=== PATIENT | female | born 1970 | race Caucasian/White ===

== ENCOUNTER 2024-10-25 03:49 | Inpatient (IN) | payer MEDICAID ==
[~2024-10-25] VITALS: Ht 170.2 cm; Wt 133.0 kg
[2024-10-25] VITALS (7 sets, daily range): BP systolic 90–164; BP diastolic 50–114; PULSE 71–95; RESP 16–20; TEMP 97.6–99; O2SAT 90–100
--- NOTE | 2024-10-25 04:30 | ELECTROCARDIOGRAPH REPORT ---
[facility] Test Date: 2024-10-25 Test Time: 04:28:01 Pat Name: STACY TURNER Department: [facility]- Patient ID: [facility]-[id number] Room: Gender: F Mobile Crane Operator: : 1970 Requested By: KITTY MALDONADO Order Number: [id number] Reading MD: Measurements Intervals [place] Rate: 100 P: 42 RI: 147 QRS: 43 QRSD: 126 T: 27 QT: 327 QTc: 422 Interpretive Statements Sinus tachycardia Nonspecific intraventricular conduction delay Probable inferior infarct, old Lateral leads are also involved Please click the below link to view image of tracing.
--- NOTE | 2024-10-25 04:34 | Physician Documentation ---
History of Present Illness ~ Chief Complaint: Leg Pain Stated Complaint: KIDNEY PAIN Time Seen by MD: 04:33 Mode of Arrival: EMS HPI Patient presents to the emergency room for evaluation transferred from [facility] for infection of leg in need for nephrology consult and Infectious Disease consult. Patient has history of bilateral lymphadenopathy and she goes to wound care for chronic wounds on her legs. Legs have significantly worsened recently prompting patient come into their emergency room. Patient found to be septic with reassuring blood pressures. Initially Rocephin and vancomycin was ordered however given patient's history of multi-drug resistance hospitalist added meropenem and Zyvox. Patient received IV fluids at sending facility with slight increase of patient's creatinine however given patient's acute kidney injury confirmed with normal renal function one month ago along with likely need for complicated antibiotic regimen that could be nephrotoxic they felt that transfer was necessary for nephrology consultation as well as Infectious Disease. She has received 2 L of IV fluids. Tetanus witin 5 years: No (Didnt ask) Medication Reconciliation Allergies: Coded Allergies: cephalexin (Unverified Allergy, Unknown, 10/25/24) morphine (Unverified Allergy, Unknown, 10/25/24) Review of Systems ROS All review of systems negative except as per HPI Physical Exam Vital Signs: Temperature: 99.2, Source: Oral, Heart Rate: 99, Respiratory Rate: 16, BP: 135/73, Pulse Oximetry: 91, Weight: 133.000 Oxygen Flow Rate: 0 Physical Exam General: Patient is awake, alert, oriented x4 in no acute distress Head: Normocephalic and atraumatic. Eyes: Conjunctival normal. EOMI. PERRL. ENT: Mucous membranes moist. Neck: Supple, trachea is midline. Chest: Clear to auscultation bilaterally without rales, rhonchi, or wheezes. There is no accessory muscle use or retractions. Cardiac: RRR without murmurs, gallops, or rubs. Extremities: Still and in his noted to bilateral legs left greater than right. Dorsalis pedis pulses intact bilaterally Progress Results/Orders Results/Orders Orders - LARRY NEAL MD Culture Blood (10/25/24 04:04) Urinalysis, Cult If Indicated (10/25/24 04:04) Chest,Single View (10/25/24 04:04) Monitor (10/25/24 04:04) Oxygen (10/25/24 04:04) Saline Lock (10/25/24 04:04) Procalcitonin (10/25/24 04:04) Hs Troponin I W Calculations (10/25/24 04:04) Cult Mrsa Screen (10/25/24 04:04) Lacticsepsis (10/25/24 04:04) Straight Cath For Urine Sample (10/25/24 04:04) Page Hospitalist (10/25/24 04:45) Fill Out Med Reconciliation (10/25/24 04:45) Completed Orders - LARRY NEAL MD Cbc/Diff (10/25/24 04:04) Chest,Single View (10/25/24 04:04) Electrocardiogram (10/25/24 04:04) BMP (10/25/24 04:04) Vital Signs 10/25/24 10/25/24 10/25/24 03:50 04:01 05:03 Temp 99.2 Pulse 99 101 Resp 14 16 16 B/P (MAP) 135/73 135/73 (93) Pulse Ox 91 100 O2 Flow Rate 0 0 Laboratory Tests Test 10/25/24 04:40 White Blood Count 15.4 H Red Blood Count 4.17 L Hemoglobin 11.8 L Hematocrit 34.7 L Mean Corpuscular Volume 83.3 Mean Corpuscular Hemoglobin 28.3 Mean Corpuscular Hemoglobin Concent 34.0 Red Cell Distribution Width 14.2 Platelet Count 459 H Mean Platelet Volume 8.3 Neutrophils (%) (Auto) 76.8 H Lymphocytes (%) (Auto) 12.2 L Monocytes (%) (Auto) 8.1 Eosinophils (%) (Auto) 2.0 Basophils (%) (Auto) 0.9 Neutrophils # (Auto) 11.8 H Lymphocytes # (Auto) 1.9 Monocytes # (Auto) 1.2 H Eosinophils # (Auto) 0.3 Basophils # (Auto) 0.1 CBC Comment Sodium Level 130 L Potassium Level 4.7 Chloride Level 99 Carbon Dioxide Level 19.1 L Anion Gap 12 Blood Urea Nitrogen 62 H Creatinine 2.92 H Estimated GFR/1.73 m2 17 BUN/Creatinine Ratio 21.2 H Glucose Level 105 H Calcium Level 8.6 Albumin 2.3 L Chemistry Comments EKG/XRAY/CT/US/VASC/MRI EKG : Additional Comment EKG interpreted by myself shows time of 0428, rate 100, sinus tachycardia, normal axis, no ST changes Medical Decision Making Findings Patient presents to the emergency room from [facility] for need for infectious disease consultation as well as nephrology consultation. Patient was septic and received both IV fluids in IV antibiotics at sending facility. We will admit for continued treatment and consultations Departure Admitted to Inpatient Unit: yes, to hospitalist Impression: Primary Impression: Cellulitis Additional Impressions: Sepsis Acute kidney injury Condition: Guarded Referrals: NO PRIMARY CARE PROVIDER (PCP) Signature Scribe Signature: No scribe Attestation: The note accurately reflects work and decisions made by me.Larry Neal MD 10/25/24 04:45 LARRY NEAL MD October 25, 2024 04:34
[2024-10-25 05:11] LABS: BASOPHILS # (AUTO) 0.1 X10'3 (0-0.2); BASOPHILS % (AUTO) 0.9 % (0-1); EOSINOPHILS # (AUTO) 0.3 X10'3 (0-0.9); HEMATOCRIT 34.7 % (35.0-45.0); HEMOGLOBIN 11.8 g/dl (12.0-16.0); LYMPHOCYTES # (AUTO) 1.9 X10'3 (1.1-4.8); LYMPHOCYTES % (AUTO) 12.2 % (21-51); MEAN CORPUSCULAR HEMOGLOBIN 28.3 PG (27.0-31.0); MEAN CORPUSCULAR VOLUME 83.3 FL (78-98); MEAN PLATELET VOLUME 8.3 FL (7.4-10.4); MONOCYTES # (AUTO) 1.2 X10'3 (0-0.9); MONOCYTES % (AUTO) 8.1 % (2-12); NEUTROPHILS # (AUTO) 11.8 X10'3 (1.8-7.7); NEUTROPHILS % (AUTO) 76.8 % (42-75); PLATELET COUNT 459 X10'3 (140-440); RED BLOOD COUNT 4.17 X10'6 (4.20-5.60); RED CELL DISTRIBUTION WIDTH 14.2 % (11.5-14.5); WHITE BLOOD COUNT 15.4 X10'3 (4.5-11.0)
--- NOTE | 2024-10-25 05:11 | RADIOLOGY REPORT ---
EXAM: XR Chest, 1 View CLINICAL INDICATION: suspected infection TECHNIQUE: Frontal view of the chest. COMPARISON: None FINDINGS: LUNGS AND PLEURAL SPACES: Unremarkable. No consolidation. No pneumothorax. HEART: Unremarkable. No cardiomegaly. MEDIASTINUM: Unremarkable. Normal mediastinal contour. BONES/JOINTS: Unremarkable. No acute fracture. OTHER FINDINGS: . IMPRESSION: No acute cardiopulmonary process.
[2024-10-25 05:22] LABS: ALBUMIN 2.3 G/DL (3.4-5.0); ANION GAP 12 (8-16); BLOOD UREA NITROGEN 62 MG/DL (7-18); BUN/CREATININE RATIO 21.2 (10.0-20.0); CALCIUM 8.6 MG/DL (8.5-10.1); CHLORIDE 99 MMOL/L (99-107); CREATININE 2.92 MG/DL (0.40-0.90); GLUCOSE 105 MG/DL (70-104); POTASSIUM 4.7 MMOL/L (3.5-5.1); SODIUM 130 MMOL/L (135-145); TOTAL CARBON DIOXIDE 19.1 MMOL/L (24-32); eCRCL 21 ML/MIN; eGFR 17 ML/MIN
[2024-10-25] MEDS ORDERED: potassium Cl 20 mEq SR tablet PO PRN ×2 (05:25)
[2024-10-25] MEDS ORDERED: magnesium sulf-water 4G/100mL 100 ML IV PRN (05:25)
[2024-10-25] MEDS ORDERED: magnesium hydroxide 30ml (MOM) UD suspension PO PRN (05:25)
[2024-10-25] MEDS ORDERED: mag hydrox/Alum hydrox/simeth 30ml oral suspension PO PRN (05:25)
[2024-10-25] MEDS ORDERED: ondansetron/PF 4mg/2ml inj IV PRN (05:25)
[2024-10-25] MEDS ORDERED: magnesium Cl slow-release 64mg tablet PO PRN (05:25)
[2024-10-25] MEDS ORDERED: magnesium sulf-water 2g/50mL 50 ML IV PRN (05:25)
[2024-10-25] MEDS ORDERED: acetaminophen 325mg tablet PO PRN (05:25)
[2024-10-25] MEDS ORDERED: potassium Cl 40MEQ/1/2NS 520ml 520 ML IV PRN (05:25)
[2024-10-25] MEDS: HYDROmorphone inj. 0.5 MG/0.5 ML DISP.SYRIN IV PRN (05:50)
[2024-10-25 06:16] LABS: MAGNESIUM 2.2 MG/DL (1.5-2.4); PHOSPHORUS 4.3 MG/DL (2.3-4.5)
--- NOTE | 2024-10-25 06:21 | HISTORY AND PHYSICAL-Residence ---
History & Physical Providers to CC Resident Creating Document: SHYAMSANTOSHIVORY DIXON ~ History of Present Illness Reason for Admit\Complaint: MIKE, bilateral lower extremity cellulitis, past h/o MRSA, MDR Pseudomo History of Present Illness 54-year-old female with a PMH of HTN, CKD stage 2, lymphedema, morbid obesity, meth use, nicotine dependence, venous stasis ulcer, history of MDR Pseudomonas and MRSA transferred from [facility] for bilateral lower extremity cellulitis and acute kidney injury with worsening renal function. Collected the history from the patient and also reviewed the documents of [facility]. Patient has bilateral lower extremity lymphedema with ulcers. For the past two weeks patient stated that redness, swelling and pain got worsened in both lower extremities. She also noticed lot of skin peeling and skin breakdown. Stated pain as 10/10 severity sharp nonradiating. She has had multiple infections in her leg with lymphedema and she was admitted in hospital in 2022 for this. She was treated with Keflex and Bactrim in July which did not improve leg infection. She follows with [facility] at [place]. She went to [place] in view of worsening pain and redness in both legs. On evaluation at [place] she found to have acute kidney injury with creatinine of 4.0, bicarb of 16. Urine was positive for nitrite and WBC. Her urine output was only 150 mL. Given patient has multidrug resistan infections in the past with acute kidney injury patient was transferred here for further management as they do not have nephrology services in place. At [facility] patient received meropenem and Zyvox for broader coverage. On my evaluation patient complains of 10/10 sharp pain in both lower extremities. Stated that this is worsening for the past two weeks. Denied fever, chills, rigors. Endorsed urinary discomfort. Denied abdominal symptoms, nausea, vomiting, chest pain, SOB. Allergies: Coded Allergies: cephalexin (Unverified Allergy, Unknown, 10/25/24) morphine (Unverified Allergy, Unknown, 10/25/24) Past Medical History Past Medical History HTN, CKD stage 2, lymphedema, meth use, nicotine dependence, venous stasis ulcer, history of MDR Pseudomonas and MRSA Past Surgical History Surgical History Comment Appendicectomy, left ankle surgery, laparoscopy for endometriosis Past Social History Social History Comment Patient lives alone, fairly independent, stated that she ambulates without assistance. Follows with [facility] Alcohol: Denied Smoking: Smokes half pack a day for the past 25 years Smokes marijuana for anxiety Denied other drug use ROS All Other Systems: Reviewed and Negative Exam Vitals: Vital Signs Date Time Temp Pulse Resp B/P (MAP) Pulse Ox O2 Delivery O2 Flow Rate FiO2 10/25/24 05:50 16 10/25/24 05:03 101 135/73 (93) 100 0 10/25/24 03:50 99.2 General: General: Morbid obese, Awake and Alert, in mild distress due to bilateral lower extremity pain HEENT: Conjunctiva pink, Sclera clear, dry mucous membranes Neck: Supple without masses and tenderness. Resp: Unlabored. Lungs clear to auscultation bilaterally. Heart: Regular Rate and rhythm, normal S1 and S2 without murmur, rub or gallop. Abdomen: Soft and non tender no organomegaly Extremities: Bilateral lower extremity 2+ chronic lymphedema with skin peeling on ulcers. Redness, warmth and tenderness noted in both extremities. Left more than right. No pus discharge noted. Skin: Bilateral lower extremity lymphedema with skin peeling and ulcers. DRY CANS BACK TENDER: Awake, alert, oriented x3. No motor deficits. No sensory deficits. Cranial nerves intact Diagnostic Data Last Recorded Lab Results: 10/25/24 0440 10/25/24 0440 Advance Care Planning Advanced Care plannin - 30 Minutes (Advanced care planning discussed at the bedside for approximately 15-20 minutes. All resuscitative measures including chest compressions, mechanical ventilation, defibrillation explained in detail. Patient acknowledged understanding all the resuscitative measures and opted for full code status.) Additional Plan 54-year-old female with a PMH of HTN, CKD stage 2, lymphedema, meth use, nicotine dependence, venous stasis ulcer, history of MDR Pseudomonas and MRSA transferred from [facility] for bilateral lower extremity cellulitis and acute kidney injury with worsening renal function. Patient transferred here because of past history of multi-drug resistant infections requiring broad-spectrum antibiotics along with acute kidney injury and worsening kidney functions. Patient transferred here as [facility] do not have nephrology services in place. Labs from [facility]: WBC 18, hemoglobin 13.3, platelets 618, neutrophils 80, ESR 47, sodium 130, potassium 5.1, bicarb 16, anion gap 14, BUN 69, creatinine 4.09, total bilirubin 4.27, ALT 47, AST 38, ALP 383, lactic acid 1.2, UA positive for protein, nitrite, leuko esterase, WBC, bacteria, hyaline casts. Assessment and plan: Recurrent Bilateral L/E lymphedema ulcers with cellulitis: Patient has chronic lymphedema in both lower extremities with ulcers For the past two weeks she had increased swelling, redness, tenderness and increased pain 10/10 severity She has a history of two hospitalizations in the past and one failed outpatient therapy for lower extremity infections History of MDR Pseudomonas and MRSA in the past Currently started on injection cefepime, injection Zyvox Currently WBC: 15.4, patient afebrile Started injection cefepime and Injection Zyvox for broad-spectrum coverage Avoided vancomycin in view of acute kidney injury Follow up blood cultures Consult ID in a.m. MIKE secondary to tubular stasis; metabolic acidosis As per [facility] records patient's creatinine was 4.0 on their evaluation Patient received 2 L of IV fluid bolus, current creatinine trended down 2.9, BUN 69 Bicarb 19, anion gap 12 We will start on IV fluids with two amps of sodium bicarb at 100 mL/hour Follow up with CMP and consult Nephrology if persistent renal functioning is noticed Follow up for UA lytes, UA protein, U a sediment, UA eosinophils Hypertension: Home meds metoprolol p.o. daily, continue after med rec Chronic lymphedema: Home meds p.o. Lasix 40 mg Currently on hold in view of MIKE Neuropathic pain: Gabapentin 800 mg p.o. t.i.d. Withheld in view of MIKE HLD: Atorvastatin 40 mg once daily, continue after med rec Morbid obesity: Not on home CPAP Code status: Full code DVT: Heparin 5000 subQ t.i.d. Date of Service: October 25, 2024 Billing Provider: STEVE PALACIOS MD, KOTESHWAREDDY, RES October 25, 2024 06:21
[2024-10-25] MEDS ORDERED: sodium bicarbonate (8.4%) inj. 100 MEQ in dextrose 5%-water 1,000 ML IV SCH (06:40)
[2024-10-25] MEDS: K and/or MAG REPLACEMENT MC SCH (08:00)
[2024-10-25] MEDS ORDERED: linezolid 600mg/300ml PREMIX 300 ML IV SCH (08:00)
[2024-10-25] MEDS ORDERED: CEFEPIME 2gm in D5W 50mL 50 ML IV SCH (08:00)
[2024-10-25 08:03] LABS: C-REACTIVE PROTEIN 12.25 MG/DL (0.0-0.5)
[2024-10-25] MEDS: HYDROcodone/acetaminophen 5mg/325mg tablet PO PRN (10:44)
[2024-10-25] MEDS: heparin, porcine 5000 units/ml vial SQ SCH (11:47)
[2024-10-25] MEDS: vancomycin/NS 1 GM ADD-VANTAGE 250 ML IV SCH (11:48)
[2024-10-25] MEDS: normal saline 1000ml 1,000 ML IV SCH (11:48)
[2024-10-25] MEDS: JUVEN Smoothie Arginine/Glut./Ca2+Bmb (Juven 19.3pkt) 240ml cup PO SCH (12:30)
[2024-10-25] MEDS: HYDROcodone/acetaminophen 10/325mg tab PO PRN (15:40)
--- NOTE | 2024-10-25 16:40 | RADIOLOGY REPORT ---
RENAL ULTRASOUND History: arleen Comparison: None Technique: Multiple real-time sonographic images of the kidney and bladder were obtained in conjuncti on with Doppler imaging. Findings: Echogenic bilateral kidneys. The right kidney measures 8.8 cm and demonstrates no evidence of hydronephrosis, perinephric fluid co llection, or shadowing stone. The left kidney measures 8.8 cm and demonstrates no evidence of hydronephrosis, perinephric fluid col lection, or shadowing stone. Urinary bladder: Nondistended, limiting evaluation. Impression: 1. Small and echogenic kidneys, which can be seen with medical renal disease.
[2024-10-25] MEDS ORDERED: GABA-530 PO (19:31)
[2024-10-25] MEDS ORDERED: LISI40TA13 PO (19:31)
[2024-10-25] MEDS ORDERED: METO-384 PO (19:31)
[2024-10-25] MEDS ORDERED: POTA-366 PO (19:31)
[2024-10-25] MEDS ORDERED: HYDR25TA4 PO (19:31)
[2024-10-25] MEDS ORDERED: HYDR-3686 PO (19:31)
[2024-10-25] MEDS ORDERED: BENZ200C53 PO (19:31)
[2024-10-25] MEDS ORDERED: FURO20TA4 PO (19:31)
[2024-10-25] MEDS ORDERED: NICO-630 TD (19:31)
[2024-10-25] MEDS ORDERED: ONDA-103 PO (19:31)
[2024-10-25] MEDS ORDERED: ASPI-103 PO (19:31)
[2024-10-25] MEDS ORDERED: ATOR40TA72 PO (19:31)
[2024-10-25] MEDS ORDERED: BUSP10TA3 PO (19:31)
[2024-10-25] MEDS ORDERED: vancomycin/NS 1 GM ADD-VANTAGE 250 ML IV SCH (20:00)
[2024-10-26] MEDS: nicotine 7mg patch - 24hr TD SCH (00:10)
[2024-10-26 05:00] VITALS: BP 92/49; PULSE 82; RESP 16; TEMP 97.9; O2SAT 100
[2024-10-26 06:56] LABS: BASOPHILS % (AUTO) 0.2 % (0-1); EOSINOPHILS # (AUTO) 0.3 X10'3 (0-0.9); EOSINOPHILS % (AUTO) 3.5 % (0-6); HEMATOCRIT 34.3 % (35.0-45.0); HEMOGLOBIN 11.5 g/dl (12.0-16.0); LYMPHOCYTES # (AUTO) 2.4 X10'3 (1.1-4.8); LYMPHOCYTES % (AUTO) 30.2 % (21-51); MEAN CORPUSCULAR HGB CONC 33.5 g/dL (33.0-36.5); MEAN CORPUSCULAR VOLUME 83.6 FL (78-98); MEAN PLATELET VOLUME 7.8 FL (7.4-10.4); MONOCYTES # (AUTO) 0.9 X10'3 (0-0.9); MONOCYTES % (AUTO) 11.6 % (2-12); NEUTROPHILS # (AUTO) 4.3 X10'3 (1.8-7.7); NEUTROPHILS % (AUTO) 54.5 % (42-75); PLATELET COUNT 466 X10'3 (140-440); RED CELL DISTRIBUTION WIDTH 14.4 % (11.5-14.5)
[2024-10-26 07:25] LABS: ALANINE AMINOTRANSFERASE 25 U/L (12-78); ALBUMIN/GLOBULIN RATIO 0.5 (1.1-1.5); ALKALINE PHOSPHATASE 242 IU/L (46-116); ANION GAP 11 (8-16); ASPARTATE AMINO TRANSFERASE 23 U/L (10-37); BILIRUBIN,TOTAL 0.2 MG/DL (0.1-1.0); BLOOD UREA NITROGEN 45 MG/DL (7-18); BUN/CREATININE RATIO 30.8 (10.0-20.0); CALCIUM 8.4 MG/DL (8.5-10.1); CHLORIDE 104 MMOL/L (99-107); CHOL/HDL RATIO 3.6 (0.00-4.99); CHOLESTEROL 132 MG/DL (0-200); CREATININE 1.46 MG/DL (0.40-0.90); GLUCOSE 78 MG/DL (70-104); HDL CHOLESTEROL 37 MG/DL (35-60); LDL CHOLESTEROL 78 MG/DL (50-100); POTASSIUM 4.5 MMOL/L (3.5-5.1); SODIUM 133 MMOL/L (135-145); TOTAL CARBON DIOXIDE 17.7 MMOL/L (24-32); TOTAL PROTEIN 6.2 G/DL (6.4-8.2); TRIGLYCERIDES 113 MG/DL (20-135); eCRCL 42 ML/MIN; eGFR 37 ML/MIN
[2024-10-26 08:00] VITALS: RESP 16; O2SAT 99
[2024-10-26 10:00] VITALS: BP 122/51; PULSE 91; RESP 16; TEMP 98.1; O2SAT 99
[2024-10-26 12:38] LABS: BILIRUBIN,URINE NEGATIVE (Neg); CLARITY,URINE CLEAR (Clear); COLOR,URINE YELLOW (Yellow); GLUCOSE, URINE NEGATIVE (Neg); KETONES,URINE NEGATIVE (Neg); LEUKOCYTE ESTERASE ,URINE NEGATIVE (Neg); NITRITES, URINE NEGATIVE (Neg); OCCULT BLOOD,URINE TRACE-INTACT (Neg); PROTEIN,URINE NEGATIVE (Neg); UROBILINOGEN,URINE 0.2 E.U/dL (0.2-1.0)
[2024-10-26 12:42] LABS: OSMOLALITY UA 561 MOSM/K (50-1400)
[2024-10-26 12:44] LABS: UA COLLECTION TYPE CLN CATCH MIDSTREAM; URINE AMPHETAMINE SCREEN POSITIVE (Neg); URINE BARBITUATE SCREEN NEGATIVE (Neg); URINE BENZODIAZEPINES SCREEN NEGATIVE (Neg); URINE CANNABINOID SCREEN NEGATIVE (Neg); URINE COCAINE SCREEN NEGATIVE (Neg); URINE METHADONE SCREEN NEGATIVE (Neg); URINE OPIATE SCREEN POSITIVE (Neg); URINE PHENCYCLIDINE SCREEN NEGATIVE (Neg)
[2024-10-26 12:49] LABS: BACTERIA,URINE FEW /HPF (Neg); FINE GRANULAR CAST 0-3 /LPF (NEGATIVE); RBC,URINE 0-2 /HPF (0-2); SQUAMOUS EPITHELIAL CELL,UR FEW /LPF (FEW); WBC,URINE 0-4 /HPF (0-4)
[2024-10-26 12:50] LABS: MUCUS STRANDS FEW /LPF (Neg)
[2024-10-26 13:09] LABS: CHLORIDE,URINE RANDOM 52 MEQ/L; SODIUM,URINE RANDOM < 15 MEQ/L; TOTAL PROTEIN,URINE RANDOM 63.9 MG/DL
[2024-10-26] MEDS ORDERED: docusate sod 100mg capsule PO PRN (13:15)
[2024-10-26 13:49] LABS: UA EOSINOPHILS NO EOS /HPF
[2024-10-26 18:00] VITALS: BP 103/49; PULSE 70; RESP 16; TEMP 98.6; O2SAT 99
--- NOTE | 2024-10-26 19:03 | PROGRESS NOTE ---
Daily Progress Note Providers to CC ~ Antibiotic Timeout Antibiotic Ordered?: Yes Subjective Pain is better controlled, denies any shortness of breaths Objective Vital Signs Date Time Temp Pulse Resp B/P (MAP) Pulse Ox O2 Delivery O2 Flow Rate FiO2 10/26/24 18:00 18 10/26/24 10:00 98.1 91 122/51 (74) 99 Room Air 10/26/24 08:00 0.0 Result Diagram: 10/26/24 0610/26/24 06 In bed in nonacute distress HEENT normal oral mucosa no JVD Lungs with decreased bilateral entry no crackles Heart normal rate and rhythm S1-S2 Abdomen is soft obese nontender bowel sounds present Extremities trace edema; bilateral lower extremity [id number] covered with dressing She is awake alert Problem\Assessment\Plan Patient presented with worsening wounds and severe pain bilateral lower extremity; followed by wound care; IV antibiotics with vancomycin; pain management Sepsis secondary to cellulitis and wound infected wounds present on admission Acute kidney injury secondary to sepsis Morbid obesity with a BMI of 46 History of high blood pressure continue her metoprolol lisinopril Anxiety on BuSpar Discharge disposition patient is agreeable to going to [facility] Date of Service: October 26, 2024 Billing Provider: ASHU LOPEZ MD Common Visit Codes: [id number] INP/OBS CARE(HIGH) ASHU LOPEZ MD October 26, 2024 19:03
[2024-10-26] MEDS: hydrOXYzine 25 MG tablet PO SCH (19:43)
[2024-10-26] MEDS: LORazepam 1 MG tablet PO ONE (19:43)
[2024-10-26] MEDS: benzonatate 100mg capsule PO SCH (19:43)
[2024-10-26 20:00] VITALS: RESP 18; O2SAT 97
[2024-10-26 22:00] VITALS: BP 103/57; PULSE 78; RESP 18; TEMP 98.5; O2SAT 92
[2024-10-26] MEDS: gabapentin 100mg capsule PO PRN (23:15)
[2024-10-27 06:00] VITALS: BP 140/70; PULSE 97; RESP 18; TEMP 98.1; O2SAT 98
[2024-10-27 06:08] LABS: BASOPHILS # (AUTO) 0.1 X10'3 (0-0.2); EOSINOPHILS # (AUTO) 0.2 X10'3 (0-0.9); EOSINOPHILS % (AUTO) 3.2 % (0-6); HEMATOCRIT 33.8 % (35.0-45.0); HEMOGLOBIN 10.9 g/dl (12.0-16.0); LYMPHOCYTES # (AUTO) 2.4 X10'3 (1.1-4.8); LYMPHOCYTES % (AUTO) 30.8 % (21-51); MEAN CORPUSCULAR HEMOGLOBIN 27.7 PG (27.0-31.0); MEAN CORPUSCULAR HGB CONC 32.2 g/dL (33.0-36.5); MEAN PLATELET VOLUME 7.3 FL (7.4-10.4); MONOCYTES # (AUTO) 0.8 X10'3 (0-0.9); MONOCYTES % (AUTO) 10.7 % (2-12); NEUTROPHILS # (AUTO) 4.3 X10'3 (1.8-7.7); NEUTROPHILS % (AUTO) 54.3 % (42-75); PLATELET COUNT 352 X10'3 (140-440); RED BLOOD COUNT 3.93 X10'6 (4.20-5.60); RED CELL DISTRIBUTION WIDTH 14.7 % (11.5-14.5); WHITE BLOOD COUNT 7.8 X10'3 (4.5-11.0)
[2024-10-27 07:06] LABS: ALANINE AMINOTRANSFERASE 23 U/L (12-78); ALBUMIN 1.8 G/DL (3.4-5.0); ALBUMIN/GLOBULIN RATIO 0.5 (1.1-1.5); ALKALINE PHOSPHATASE 187 IU/L (46-116); ANION GAP 8 (8-16); ASPARTATE AMINO TRANSFERASE 13 U/L (10-37); BILIRUBIN,TOTAL 0.2 MG/DL (0.1-1.0); BLOOD UREA NITROGEN 29 MG/DL (7-18); BUN/CREATININE RATIO 35.4 (10.0-20.0); CALCIUM 8.6 MG/DL (8.5-10.1); CHLORIDE 111 MMOL/L (99-107); CREATININE 0.82 MG/DL (0.40-0.90); GLUCOSE 96 MG/DL (70-104); POTASSIUM 4.7 MMOL/L (3.5-5.1); SODIUM 140 MMOL/L (135-145); TOTAL CARBON DIOXIDE 21.3 MMOL/L (24-32); TOTAL PROTEIN 5.6 G/DL (6.4-8.2); eCRCL 75 ML/MIN; eGFR 72 ML/MIN
[2024-10-27 08:00] VITALS: RESP 18; O2SAT 98
[2024-10-27] MEDS: metoprolol succinate 25mg (24-HOUR) SR. Tablet PO SCH (08:00)
[2024-10-27] MEDS: lisinopril 20mg tablet PO SCH (08:00)
[2024-10-27] MEDS: atorvastatin 20mg tablet PO SCH (08:00)
[2024-10-27] MEDS: nicotine 7mg patch - 24hr TD SCH (08:00)
[2024-10-27] MEDS: aspirin 325mg tablet PO SCH (08:00)
[2024-10-27] MEDS: furosemide 20MG tablet PO SCH (08:00)
[2024-10-27 10:00] VITALS: BP 127/67; PULSE 94; RESP 19; TEMP 98.4; O2SAT 96
[2024-10-27] MEDS: HYDROcodone/acetaminophen 10/325mg tab PO PRN (12:06)
[2024-10-27] MEDS: LORazepam 0.5 MG tablet PO PRN (15:49)
[2024-10-27] MEDS: busPIRone 5mg tablet PO PRN (16:13)
--- NOTE | 2024-10-27 17:41 | PROGRESS NOTE ---
Daily Progress Note Providers to CC ~ Antibiotic Timeout Antibiotic Ordered?: Yes Subjective Woke up with severe pain; later on in the day she started getting anxious and wanted to go outside and smoke Objective Vital Signs Date Time Temp Pulse Resp B/P (MAP) Pulse Ox O2 Delivery O2 Flow Rate FiO2 10/27/24 16:12 18 10/27/24 10:00 98.4 94 127/67 (87) 96 10/27/24 08:00 Room Air 0.0 Result Diagram: 10/27/2452610/27/24526 In bed in nonacute distress HEENT normal oral mucosa no JVD Lungs with decreased bilateral entry no crackles Heart normal rate and rhythm S1-S2 Abdomen is soft obese nontender bowel sounds present Extremities trace edema; bilateral lower extremity [id number] covered with dressing She is awake alert Problem\Assessment\Plan Patient presented with worsening wounds and severe pain bilateral lower extremity; followed by wound care; IV antibiotics with vancomycin; pain management Sepsis secondary to cellulitis and wound infected wounds present on admission Acute kidney injury secondary to sepsis 10/27 kidney function normalized with IV fluids; DC IV fluids Morbid obesity with a BMI of 46 History of high blood pressure continue her metoprolol lisinopril Anxiety on BuSpar 10/27 try Ativan 0.5 mg p.o. b.i.d. History of continuous nicotine dependence-nicotine patch Discharge disposition patient is agreeable to going to [facility] Date of Service: October 27, 2024 Billing Provider: ASHU LOPEZ MD Common Visit Codes: [id number] INP/OBS CARE(HIGH) ASHU LOPEZ MD October 27, 2024 17:41
[2024-10-27] MEDS ORDERED: diphenhydrAMINE 25mg capsule PO PRN (17:55)
[2024-10-27 18:00] VITALS: BP 118/51; PULSE 89; RESP 16; TEMP 98.3; O2SAT 92
[2024-10-27 22:00] VITALS: BP 125/58; RESP 18; TEMP 98.1; O2SAT 98
[2024-10-28 06:00] VITALS: BP 108/49; PULSE 101; RESP 18; TEMP 99.8; O2SAT 98
[2024-10-28 06:35] LABS: BASOPHILS # (AUTO) 0.1 X10'3 (0-0.2); BASOPHILS % (AUTO) 1.2 % (0-1); EOSINOPHILS # (AUTO) 0.3 X10'3 (0-0.9); HEMATOCRIT 34.7 % (35.0-45.0); HEMOGLOBIN 11.5 g/dl (12.0-16.0); LYMPHOCYTES # (AUTO) 2.6 X10'3 (1.1-4.8); LYMPHOCYTES % (AUTO) 25.6 % (21-51); MEAN CORPUSCULAR HEMOGLOBIN 27.8 PG (27.0-31.0); MEAN CORPUSCULAR HGB CONC 33.1 g/dL (33.0-36.5); MEAN PLATELET VOLUME 7.4 FL (7.4-10.4); MONOCYTES # (AUTO) 0.9 X10'3 (0-0.9); MONOCYTES % (AUTO) 8.6 % (2-12); NEUTROPHILS # (AUTO) 6.3 X10'3 (1.8-7.7); NEUTROPHILS % (AUTO) 61.6 % (42-75); PLATELET COUNT 433 X10'3 (140-440); RED BLOOD COUNT 4.13 X10'6 (4.20-5.60); RED CELL DISTRIBUTION WIDTH 14.5 % (11.5-14.5); WHITE BLOOD COUNT 10.1 X10'3 (4.5-11.0)
[2024-10-28 06:54] LABS: ALANINE AMINOTRANSFERASE 16 U/L (12-78); ALBUMIN 2.2 G/DL (3.4-5.0); ALBUMIN/GLOBULIN RATIO 0.5 (1.1-1.5); ALKALINE PHOSPHATASE 177 IU/L (46-116); ANION GAP 9 (8-16); ASPARTATE AMINO TRANSFERASE 15 U/L (10-37); BILIRUBIN,TOTAL 0.2 MG/DL (0.1-1.0); BLOOD UREA NITROGEN 24 MG/DL (7-18); BUN/CREATININE RATIO 28.6 (10.0-20.0); CALCIUM 8.7 MG/DL (8.5-10.1); CHLORIDE 109 MMOL/L (99-107); CREATININE 0.84 MG/DL (0.40-0.90); GLUCOSE 93 MG/DL (70-104); POTASSIUM 4.9 MMOL/L (3.5-5.1); SODIUM 141 MMOL/L (135-145); TOTAL CARBON DIOXIDE 23.4 MMOL/L (24-32); TOTAL PROTEIN 6.4 G/DL (6.4-8.2); eCRCL 73 ML/MIN; eGFR 70 ML/MIN
[2024-10-28 08:00] VITALS: RESP 20; O2SAT 96
[2024-10-28 08:47] VITALS: RESP 14
[2024-10-28] MEDS ORDERED: LINE600T11 PO (10:54)
[2024-10-28] MEDS ORDERED: HYDR-3965 PO (10:54)
[2024-10-28] MEDS: VANCOMYCIN LEVEL IV ONE (11:29)
[2024-10-28] MEDS ORDERED: VANCOmycin 1250MG/NS 250ml Bag 250 ML IV SCH (13:00)
--- NOTE | 2024-10-29 15:51 | DISCHARGE SUMMARY ---
Discharge Summary Providers to CC ~ Discharge Summary Admission Diagnosis: MIKE, B/L cellulitis Hospital Course DATE OF ADMISSION: October 25, 2024 DATE OF DISCHARGE: October 28, 2024 Discharge Diagnosis\Comment: Infected wounds of the bilateral lower extremity Sepsis secondary to infected wounds present on admission Acute kidney injury secondary to sepsis present on admission Morbid obesity with a BMI of 46 History of high blood pressure History of anxiety History Of continuous nicotine dependence History of methamphetamine use Operations\Procedures: none Consultants: None Complications: None Condition on DC: Stable Discharge Summary: This is a 54 years old female who presents to the hospital with severe pain in bilateral lower extremity; was found to have wounds that look infected so patient was admitted to the hospital for treatment with wound care and IV antibiotics; was also found to have renal failure and she received IV fluids; her condition slowly improved and her kidney function improved; patient exhibited some odd behavior which was likely attributed to the use of methamphetamines; renal ultrasound showed small echogenic kidneys; 24 hours prior to discharge patient starting really acting up and on the day of discharge patient was adamant that she wants to live so patient was discharged home with trying to make arrangements for wound care follow-up Patient was discharged with prescriptions for [place] 60806 tablet p.o. q.6 hours p.r.n. pain and Zyvox 600 mg p.o. q.12 hours for seven days; patient to resume her aspirin 325 mg p.o. daily Lipitor 40 mg p.o. daily meds on a rate 200 mg p.o. t.i.d. BuSpar 10 mg p.o. daily p.r.n. anxiety Lasix 20 mg p.o. daily gabapentin 100 mg p.o. t.i.d. HCTZ 25 mg p.o. daily Atarax 25 mg p.o. q.h.s. lisinopril 40 mg p.o. daily metoprolol succinate 50 mg p.o. daily nicotine patch Zofran 4 mg q.6 hours p.r.n. potassium 20 mEq p.o. daily , day of discharge white count 10.1 H&H 11.5/34 with 433 platelets; sodium 141 potassium 4.9 CO2 23 BUN 24 and creatinine 0.8 In the physical examination temperature 99 heart rate 100 breathing 18 blood pressure 108/49 98% on room air HEENT normal oral mucosa no JVD lungs with decreased bilateral entry no crackles no wheezing heart normal rate and rhythm S1-S2 no murmurs abdomen is soft obese nontender bowel sounds present extremities trace edema the wounds covered with dressing she is awake and alert *Problems/Diagnosis: (1) Cellulitis Status: Acute Total Time Spent on D/C: > 30 Minutes Date of Service: October 28, 2024 Billing Provider: ASHU LOPEZ MD Common Visit Codes: [id number] DISCH DAY >30min ASHU LOPEZ MD October 29, 2024 15:50
[2024-10-31] MEDS ORDERED: VANCOMYCIN LEVEL IV ONE (12:30)
== END 2024-10-28 13:40 | disposition home health service (06) | DRG 720 ==
LOC: ER 03:50 → ED HOLD 05:29 → ORTHO 4S 06:55 → SUR 3N 10-27 22:08
PROVIDERS: ADMIT Internal Medicine Critical Care Medicine; ATTEND Internal Medicine
DX: A41.9 Sepsis, unspecified organism (principal); N17.0 Acute kidney failure with tubular necrosis; E87.20 Acidosis, unspecified; L97.919 Non-pressure chronic ulcer of unspecified part of right lower leg with unspecified severity; Z16.24 Resistance to multiple antibiotics; N18.2 Chronic kidney disease, stage 2 (mild); E66.01 Morbid (severe) obesity due to excess calories; F41.9 Anxiety disorder, unspecified; L03.116 Cellulitis of left lower limb; L03.115 Cellulitis of right lower limb; I12.9 Hypertensive chronic kidney disease with stage 1 through stage 4 chronic kidney disease, or unspecified chronic kidney disease; L97.929 Non-pressure chronic ulcer of unspecified part of left lower leg with unspecified severity; I89.0 Lymphedema, not elsewhere classified; E78.5 Hyperlipidemia, unspecified; Z90.49 Acquired absence of other specified parts of digestive tract; Z88.8 Allergy status to other drugs, medicaments and biological substances; Z87.891 Personal history of nicotine dependence; Z87.11 Personal history of peptic ulcer disease; Z86.14 Personal history of Methicillin resistant Staphylococcus aureus infection; Z79.82 Long term (current) use of aspirin; Z79.899 Other long term (current) drug therapy; Z68.42 Body mass index [BMI] 45.0-49.9, adult
CPT/HCPCS: 36415; 71045; 76770; 80048; 80053; 80061; 80202; 80305; 81001; 82436; 83036; 83605; 83735; 83880; 83935; 84100; 84133; 84145; 84156; 84300; 84484; 85025; 85651; 86140; 87040; 87081; 87207; 93005; 97116; 97161; 97530; 99285; A6223; A6253; A6258; A6446; A6449; G0378; J1171; J1644; J3370; J7030; Q0177